=== PATIENT | male | born 1980 | race Hispanic/Latino ===

== ENCOUNTER 2022-09-30 01:27 | Observation (INO) | payer OTHER ==
[~2022-09-30] VITALS: Ht 177.8 cm; Wt 117.9 kg
[2022-09-30 01:51] LABS: BASOPHILS % (AUTO) 0.7 % (0.0-5.0); EOSINOPHILS % (AUTO) 4.6 % (0.0-8.0); HEMATOCRIT 42.4 % (42-54); LYMPHOCYTES % (AUTO) 31.1 % (21.0-51.0); MEAN CORPUSCULAR HEMOGLOBIN 27.5 pg (27.0-33.0); MEAN CORPUSCULAR VOLUME 83.1 fL (79-99); MONOCYTES % (AUTO) 8.1 % (3.0-13.0); NEUTROPHILS % (AUTO) 55.2 % (40.0-77.0); PLATELET COUNT (AUTO) 215 K/uL (130-400)
[2022-09-30 01:59] LABS: CREATININE 1.1 mg/dL (0.5-1.5); POTASSIUM 3.5 mmol/L (3.5-5.1)
[2022-09-30 02:04] LABS: ALBUMIN 3.9 g/dL (3.5-5.0)
[2022-09-30 02:14] LABS: B-TYPE NATRIURETIC PEPTIDE < 5 pg/mL (0-100)
[2022-09-30] MEDS ORDERED: NITROGLYCERIN 0.4 MG SL TAB SL PRN ×2 (02:30→06:00)
[2022-09-30] MEDS ORDERED: ACETAMINOPHEN 325 MG TAB PO PRN ×2 (06:00)
[2022-09-30] MEDS ORDERED: 0.9%NACL 1000ML 1,000 ML IV SCH (06:00)
[2022-09-30] MEDS ORDERED: ONDANSETRON 4MG INJ IV PRN (06:00)
[2022-09-30] MEDS: 0.9%NACL 1000ML 1,000 ML IV SCH ×2 (06:15→15:48)
[2022-09-30 06:41] LABS: HEMOGLOBIN A1C 5.7 % (4.0-6.0)
[2022-09-30] MEDS ORDERED: ASPIRIN 81 MG EC TAB PO SCH (09:00)
[2022-09-30] MEDS ORDERED: FAMOTIDINE 20MG TAB PO SCH (09:00)
[2022-09-30] MEDS ORDERED: ENOXAPARIN SODIUM 40 MG/0.4 ML SYRINGE SQ SCH (09:00)
[2022-09-30 09:04] LABS: APPEARANCE,URINE CLEAR (CLEAR); BILIRUBIN,URINE NEGATIVE (NEGATIVE); COLOR,URINE LIGHT-YELLOW (YELLOW); GLUCOSE, URINE (UA) 150 mg/dL (NEGATIVE); KETONES,URINE NEGATIVE (NEGATIVE); LEUKOCYTE ESTERASE ,URINE NEGATIVE Leu/uL (NEGATIVE); NITRATE,URINE NEGATIVE (NEGATIVE); OCCULT BLOOD,URINE NEGATIVE (NEGATIVE); PROTEIN,URINE NEGATIVE (NEGATIVE); UROBILINOGEN,URINE 0.2 mg/dL (0.2-1.0)
[2022-09-30 09:20] LABS: MUCUS,URINE RARE LPF (None Seen); RBC,URINE 0-1 /HPF (0-1); WBC,URINE 0-1 /HPF (0-1)
[2022-09-30 09:26] LABS: AMPHET/METH SCREEN,URINE NEGATIVE (NEGATIVE); BARBITURATE SCREEN, URINE NEGATIVE (NEGATIVE); BENZODIAZEPINES SCREEN,URINE NEGATIVE (NEGATIVE); CANNABINOID SCREEN,URINE POSITIVE (NEGATIVE); COCAINE SCREEN,URINE POSITIVE (NEGATIVE); OPIATE SCREEN,URINE NEGATIVE (NEGATIVE); PHENCYCLIDINE SCREEN,URINE NEGATIVE (NEGATIVE)
[2022-09-30 14:00] VITALS: BP 130/80
== END 2022-09-30 14:00 | disposition home or self-care (01) ==
LOC: EDH 01:27 → EDHIP 01:28 → UNDOADMOB 05:37 → EDHIP 05:37
PROVIDERS: ADMIT Internal Medicine; ATTEND Internal Medicine
DX: I20.0 Unstable angina (principal); F12.10 Cannabis abuse, uncomplicated; F14.10 Cocaine abuse, uncomplicated; F10.10 Alcohol abuse, uncomplicated; F41.9 Anxiety disorder, unspecified; Z79.899 Other long term (current) drug therapy
CPT/HCPCS: 96372; 96360; 96361; 99285; 83036; 84443; 82550 ×2; 83874; 84484 ×3; 80061; 80053; 83880 ×2; 80305; 85025; 85378; 81001; 36415; 71045; 93005 ×2; G0378 ×8; J7030; J1650